=== PATIENT | male | born 1960 | race Caucasian/White ===

== ENCOUNTER 2017-09-29 14:24 | Emergency (ER) | payer BC ==
[2017-09-29 15:01] VITALS: TEMP 98.2
[2017-09-29 16:09] LABS: Basophils % (A) 0 %; Eosinophils # (A) 0.2 k/uL (0-0.7); Eosinophils % (A) 2 %; HCT 48.1 % (39.0-53.0); HGB 15.9 gm/dL (13.0-17.5); Lymphocytes # (A) 1.7 k/uL (1.0-4.8); Lymphocytes % (A) 18 %; MCH 31.5 pg (25.0-35.0); MCHC 33.1 g/dL (31.0-37.0); MCV 95.3 fL (80.0-100.0); Mean Platelet Volume 7.5; Monocytes # (A) 0.5 k/uL (0-1.0); Monocytes % (A) 5 %; Neutrophils # (A) 6.8 k/uL (1.3-7.7); Neutrophils % (A) 73 %; Platelet Count 245 k/uL (150-450); RBC 5.05 m/uL (4.30-5.90); RDW 12.5 % (11.5-15.5); WBC 9.3 k/uL (3.8-10.6)
[2017-09-29 16:20] LABS: Appearance,Urine Clear (Clear); Bacteria,Urine Rare /hpf; Bilirubin,Urine Negative (Negative); Blood,Urine Moderate (Negative); Color,Urine Light Yellow; Glucose,Urine (UA) Negative (Negative); Ketones,Urine Negative (Negative); Leukocyte Esterase,Urine Negative (Negative); Mucus,Urine Rare /hpf; Nitrite,Urine Negative (Negative); Protein,Urine Negative (Negative); RBC,Urine 16 /hpf (0-5); Squamous Epithelial Cell,Urine <1 /hpf (0-4); Urobilinogen,Urine <2.0 mg/dL (<2.0); WBC,Urine 6 /hpf (0-5)
[2017-09-29] MEDS ORDERED: KETOROLAC 30 MG/ML 1 ML VIAL IVP STA (16:20)
[2017-09-29 16:26] LABS: ALT 37 U/L (21-72); AST 21 U/L (17-59); Albumin 4.3 g/dL (3.5-5.0); Alkaline Phosphatase 47 U/L (38-126); Amylase 47 U/L (30-110); Anion Gap 10 mmol/L; Blood Urea Nitrogen 15 mg/dL (9-20); Calcium 9.1 mg/dL (8.4-10.2); Carbon Dioxide 25 mmol/L (22-30); Chloride 107 mmol/L (98-107); Glucose 92 mg/dL (74-99); Lipase 42 U/L (23-300); Potassium 4.2 mmol/L (3.5-5.1); Sodium 142 mmol/L (137-145); Total Bilirubin 0.8 mg/dL (0.2-1.3); Total Protein 6.8 g/dL (6.3-8.2)
--- NOTE | 2017-09-29 16:29 | XR ---
EXAMINATION TYPE: XR abdomen 2V DATE OF EXAM: 09/29/2017 CLINICAL HISTORY: Left lower quadrant pain TECHNIQUE: Supine and upright views of the abdomen are obtained. COMPARISON: None. FINDINGS: Scattered gas is seen in non-distended stomach and small bowel loops. Gas and fecal mater ial is seen in non-distended colon and rectum. Cardiomegaly is present. No pneumoperitoneum is seen. Left pelvic phlebolith is noted. Moderate joint space loss in both hips is present. IMPRESSION: Overall nonobstructive bowel gas pattern.
--- NOTE | 2017-09-29 17:07 | ED ---
General Adult HPI - General Chief complaint: Abdominal Pain Stated complaint: LLQ Pain sent by PCP Time Seen by Provider: 09/29/17 15:50 Source: patient, family, RN notes reviewed Mode of arrival: ambulatory Limitations: no limitations - History of Present Illness Initial comments: Chief complaint and history of present illness is a 57-year-old male with a complaint of left lower quadrant pain. Started last week and then got better and then again today. The discomfort causes some nausea and vomiting. The patient has had a past history of kidney stones. - Related Data Home Medications Medication Instructions Recorded Confirmed Magnesium 200 mg PO DAILY 09/29/17 09/29/17 Multivitamins, Thera [Multivitamin 1 tab PO DAILY 09/29/17 09/29/17 (formulary)] Previous Rx's Medication Instructions Recorded Hydrocodone/Acetaminophen [[place] 1 each PO Q6HR PRN #12 tab 09/29/17 5-325] Ondansetron Odt [Zofran Odt] 4 mg PO Q8HR PRN #10 tab 09/29/17 Tamsulosin [Flomax] 0.4 mg PO DAILY #14 cap 09/29/17 Allergies Allergy/AdvReac Type Severity Reaction Status Date / Time cortisone Allergy fell- Verified 09/29/17 16:59 started shaking Review of Systems ROS Statement: Those systems with pertinent positive or pertinent negative responses have been documented in the HPI. Review of systems. No headache or visual acuity changes no chest pain or shortness of breath the patient does not have any upper abdominal pain. His discomfort is the left lower quadrant. Nausea and some vomiting which started yesterday and this morning. Patient also reports she had some of the same discomfort last week but it subsided. He has had kidney stones in the past. All systems were reviewed. Past medical problems significant for migraines bradycardia. Surgeries oral surgery tonsillectomy. Family history mother at colon cancer. The patient has had colonoscopies. He was told he had diverticulosis. Brother and uncle both had lung cancer. Patient has ALLERGIES to cortisone. Patient stopped smoking 26 years ago. Drink alcohol rarely socially. ROS Other: All systems not noted in ROS Statement are negative. Past Medical History Additional Past Medical History / Comment(s): migraines, bradycardia, occ bronchitis History of Any Multi-Drug Resistant Organisms: None Reported Past Surgical History: Tonsillectomy Additional Past Surgical History / Comment(s): oral surgery, plastic surgery on face Past Anesthesia/Blood Transfusion Reactions: Previous Problems w/ Anesthesia Additional Past Anesthesia/Blood Transfusion Reaction / Comment(s): woke up during surgery Past Psychological History: Depression Smoking Status: Former smoker Past Alcohol Use History: Occasional Past Drug Use History: None Reported - Past Family History Mother Family Medical History: Cancer Additional Family Medical History / Comment(s): colon Brother(s) Family Medical History: Cancer Additional Family Medical History / Comment(s): liver,colon General Exam - General Exam Comments Initial Comments: General: The patient is awake and alert, here with left lower quadrant pain. Ongoing for one day. Positive nausea vomiting. Vital signs temperature 98.2 pulse 50 her story rate 20 pulse ox 99% room air blood pressure 132/77 Eye: Pupils are equal, , extra-ocular movements are intact; there is normal conjunctiva bilaterally. No signs of icterus. Ears, nose, mouth and throat: There are moist mucous membranes Neck: The neck is supple, there is no tenderness Cardiovascular: There is a regular rate and rhythm. No murmur, rub or gallop is appreciated. Respiratory: Lungs are clear to auscultation, respirations are non-labored, breath sounds are equal. No wheezes, stridor, rales, or rhonchi. Gastrointestinal: Soft, non-distended, non-tender abdomen without masses or organomegaly noted. There is no rebound or guarding present. No CVA tenderness. Bowel sounds are unremarkable. Currently pain-free. Pain comes and goes. Back: There is no tenderness to palpation in the midline. There is no obvious deformity. No rashes noted. Musculoskeletal: Normal ROM, no tenderness, There is no pedal edema. There is no calf tenderness or swelling. Limitations: no limitations Course Vital Signs 09/29/17 09/29/17 14:58 17:53 Temperature 98.2 F Pulse Rate 50 L 52 L Respiratory 20 18 Rate Blood Pressure 132/77 111/57 O2 Sat by Pulse 99 98 Oximetry Medical Decision Making - Medical Decision Making Medical decision making; the patient has left lower quadrant pain. His come in for evaluation of possible diverticulitis. Colonoscopy in the past suggested diverticulosis. Patient's history does include having passed kidney stones several times. The patient's labs show white count of 9 hemoglobin 15.9 hematocrit of 48 with a potassium 4.2 and a BUN of 15 creatinine 0.95 GFR greater than 90. Glucose 92. Patient's urine shows 16 red 6 whites and moderate blood. No bacteria. CT of the abdomen was done without contrast and the radiologist's final impression is obstructing calculus at the left ureterovesical junction with moderate left-sided hydronephrosis and hydroureter. Mild perinephric edema nonobstructing right renal calculi. L4 spondylosis with first-degree L4-L5 spondylolisthesis. HEENT calcified gallstones. Small hepatic cyst. As read by Dr. Mcdonald. I discussed in droop pictures at bedside concerning the pathology as described in the CAT scan. The patient will replace on Flomax, Zofran, Tif[place] for pain as well as ibuprofen. Advised increase fluids. If after several days he's a pain contract his family doctor and on-call urologist Dr. Gonzalez if the pain persists. - Lab Data Result diagrams: 09/29/17 15:51 09/29/17 15:51 Lab Results 09/29/17 09/29/17 09/29/17 Range/Units 15:51 15:51 16:00 WBC 9.3 (3.8-10.6) k/uL RBC 5.05 (4.30-5.90) m/uL Hgb 15.9 (13.0-17.5) gm/dL Hct 48.1 (39.0-53.0) % MCV 95.3 (80.0-100.0) fL MCH 31.5 (25.0-35.0) pg MCHC 33.1 (31.0-37.0) g/dL RDW 12.5 (11.5-15.5) % Plt Count 245 (150-450) k/uL Neutrophils % 73 % Lymphocytes % 18 % Monocytes % 5 % Eosinophils % 2 % Basophils % 0 % Neutrophils # 6.8 (1.3-7.7) k/uL Lymphocytes # 1.7 (1.0-4.8) k/uL Monocytes # 0.5 (0-1.0) k/uL Eosinophils # 0.2 (0-0.7) k/uL Basophils # 0.0 (0-0.2) k/uL Sodium 142 (137-145) mmol/L Potassium 4.2 (3.5-5.1) mmol/L Chloride 107 (98-107) mmol/L Carbon Dioxide 25 (22-30) mmol/L Anion Gap 10 mmol/L BUN 15 (9-20) mg/dL Creatinine 0.95 (0.66-1.25) mg/dL Est GFR (CKD-EPI)AfAm >90 (>60 ml/min/1.73 sqM) Est GFR (CKD-EPI)NonAf >90 (>60 ml/min/1.73 sqM) Glucose 92 (74-99) mg/dL Calcium 9.1 (8.4-10.2) mg/dL Total Bilirubin 0.8 (0.2-1.3) mg/dL AST 21 (17-59) U/L ALT 37 (21-72) U/L Alkaline Phosphatase 47 (38-126) U/L Total Protein 6.8 (6.3-8.2) g/dL Albumin 4.3 (3.5-5.0) g/dL Amylase 47 (30-110) U/L Lipase 42 (23-300) U/L Urine Color Light Yellow Urine Appearance Clear (Clear) Urine pH 6.0 (5.0-8.0) Ur Specific [place] 1.010 (1.001-1.035) Urine Protein Negative (Negative) Urine Glucose (UA) Negative (Negative) Urine Ketones Negative (Negative) Urine Blood Moderate H (Negative) Urine Nitrite Negative (Negative) Urine Bilirubin Negative (Negative) Urine Urobilinogen <2.0 (<2.0) mg/dL Ur Leukocyte Esterase Negative (Negative) Urine RBC 16 H (0-5) /hpf Urine WBC 6 H (0-5) /hpf Ur Squamous Epith Cells <1 (0-4) /hpf Urine Bacteria Rare H (None) /hpf Urine Mucus Rare H (None) /hpf Disposition Clinical Impression: Ureterolithiasis Disposition: HOME SELF-CARE Condition: Fair Instructions: Kidney Stones (ED) Additional Instructions: Increase her fluids. Take medications as directed. Follow-up with family physician and on-call urologist if pain persists. Return emergency room as needed Prescriptions: Hydrocodone/Acetaminophen [[place] 5-325] 1 each PO Q6HR PRN #12 tab PRN Reason: Pain Ondansetron Odt [Zofran Odt] 4 mg PO Q8HR PRN #10 tab PRN Reason: Nausea Tamsulosin [Flomax] 0.4 mg PO DAILY #14 cap Is patient prescribed a controlled substance at d/c from ED?: Yes When asked, does pt state using other controlled substances?: No If prescribed controlled substance>3 days was MAPS reviewed?: No If opioid is for acute pain is fill amount 7 days or less?: Yes If Rx opioid, was Start Talking consent form obtained?: Yes Referrals: Blayne Ellis MD [Primary Care Provider] - 1-2 days Time of Disposition: 18:44
[2017-09-29 17:53] VITALS: BP 111/57; PULSE 52; RESP 18
--- NOTE | 2017-09-29 18:01 | CT ---
EXAMINATION TYPE: CT abdomen pelvis wo con DATE OF EXAM: 09/29/2017 COMPARISON: NONE HISTORY: LLQ pain, hematuria CT DLP: 1148 mGycm Automated exposure control for dose reduction was used. TECHNIQUE: Helical acquisition of images was performed from the lung bases through the pelvis. FINDINGS: Lung bases are clear of consolidation. There is no pleural effusion. There is no pericardial effusion . There is a 1 cm hypodensity in the left lobe of the liver that is probably a cyst. Spleen appears n ormal. There is no pancreatic mass. There are multiple small calcified gallstones. Bile ducts are not dilated. There is no adrenal mass. There is left-sided hydronephrosis and hydroureter. There is 6 mm obstructi ng calculus at the left ureteral vesicle junction. There are several right renal calculi. The largest is 4 mm in the upper pole. There is no retroperitoneal adenopathy. There is no ascites. Appendix appears normal. I see no intest inal wall thickening. There are no dilated loops. Bladder distends smoothly. There is no bony destruc tive process. There is narrowing at L4-5 disc space with bilateral L4 spondylolysis. There is a first -degree L4-5 spondylolisthesis. IMPRESSION: OBSTRUCTING CALCULUS AT THE LEFT URETEROVESICAL JUNCTION WITH MODERATE LEFT-SIDED HYDRONEPHROSIS AND HYDROURETER. MILD PERINEPHRIC EDEMA. NONOBSTRUCTING RIGHT RENAL CALCULI. L4 SPONDYLOLYSIS WITH FIRST-DEGREE L4-5 SPONDYLOLISTHESIS. CALCIFIED GALLSTONES. SMALL HEPATIC CYST.
== END 2017-09-29 18:55 | disposition home or self-care (01) ==
LOC: EC 14:24
DX: N13.2 Hydronephrosis with renal and ureteral calculous obstruction (principal); M43.16 Spondylolisthesis, lumbar region; K80.80 Other cholelithiasis without obstruction; K76.89 Other specified diseases of liver; Z87.891 Personal history of nicotine dependence; Z87.442 Personal history of urinary calculi; Z79.899 Other long term (current) drug therapy; Z88.8 Allergy status to other drugs, medicaments and biological substances
CPT/HCPCS: 36415; 80053; 82150; 83690; 85025; 81001; 87086; 74019; 74176; 99284; 96374; J1885